=== PATIENT | male | born 1970 ===

== ENCOUNTER 2017-09-29 12:30 | Emergency (ER) | payer OTHER, BC ==
[2017-09-29 12:48] VITALS: TEMP 97.9; O2SAT 98
[2017-09-29 12:49] VITALS: RESP 18
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
[2017-09-29 14:01] VITALS: BP 148/89; PULSE 68
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
--- NOTE | 2017-09-29 15:17 | RAD ---
PROCEDURE: Cervical Spine Radiographs. HISTORY: Pain. COMPARISON: None. FINDINGS: BONES: Alignment maintained. No fracture. Dens IntactVertebral bodies maintained in height. Normal alignment maintained. Atlantoaxial articulation intact. The odontoid process is suboptimally evaluated. . DISC SPACES: Normal. SOFT TISSUES: Normal. No prevertebral soft tissue swelling. OTHER FINDINGS: None. IMPRESSION: No evidence of fracture or dislocation. Technically limited evaluation of odontoid process.
== END 2017-09-29 15:48 | disposition home or self-care (01) ==
LOC: ED 12:30
DX: S16.1XXA Strain of muscle, fascia and tendon at neck level, initial encounter (principal); V89.2XXA Person injured in unspecified motor-vehicle accident, traffic, initial encounter
CPT/HCPCS: 72050; 72110; 96372; 99284; J1885

== ENCOUNTER 2018-08-17 09:41 | Emergency (ER) | payer BC, OTHER ==
[2018-08-17 10:00] VITALS: O2SAT 99
--- NOTE | 2018-08-17 10:11 | ED PDOC ---
Arrival/HPI - General Chief Complaint: Lower Extremity Problem/Injury Historian: Patient - History of Present Illness Narrative History of Present Illness (Text): 08/17/18 10:09 47yo male with no pmhx who present with complaint of left ankle pain s/p trauma this morning. States he landed on uneven ground and twisted his ankle this morning. Ambulating with a limp. Did not take any medication for pain. Denies any other complaint. Past Medical History - Provider Review Nursing Documentation Reviewed: Yes - Infectious Disease Hx of Infectious Diseases: None - Cardiac Hx Cardiac Disorders: No - Psychiatric Hx Substance Use: No - Anesthesia Hx Anesthesia: No Hx Anesthesia Reactions: No Hx Malignant Hyperthermia: No Family/Social History - Physician Review Nursing Documentation Reviewed: Yes Family/Social History: Unknown Family HX Smoking Status: Never Smoked Hx Alcohol Use: No Hx Substance Use: No Allergies/Home Meds Allergies/Adverse Reactions: Allergies No Known Allergies Allergy (Verified 09/29/17 13:08) Review of Systems - Physician Review All systems were reviewed & negative as marked: Yes - Review of Systems Constitutional: Normal Eyes: Normal ENT: Normal Respiratory: Normal Cardiovascular: Normal Gastrointestinal: Normal Genitourinary Male: Normal Musculoskeletal: Arthralgias (LEft ankle) Skin: Normal Neurological: Normal Endocrine: Normal Hemo/Lymphatic: Normal Psychiatric: Normal Physical Exam Vital Signs Reviewed: Yes Vital Signs Temp Pulse Resp BP Pulse Ox 08/17/18 09:50 98 F 65 18 124/69 99 Temperature: Afebrile Blood Pressure: Normal Pulse: Regular Respiratory Rate: Normal Appearance: Positive for: Well-Appearing, Non-Toxic, Comfortable Pain Distress: None Mental Status: Positive for: Alert and Oriented X 3 - Systems Exam Head: Present: Atraumatic, Normocephalic Pupils: Present: PERRL Extroacular Muscles: Present: EOMI Conjunctiva: Present: Normal Mouth: Present: Moist Mucous Membranes Neck: Present: Normal Range of Motion Respiratory/Chest: Present: Clear to Auscultation, Good Air Exchange. No: Respiratory Distress, Accessory Muscle Use Cardiovascular: Present: Regular Rate and Rhythm, Normal S1, S2. No: Murmurs Abdomen: No: Tenderness, Distention, Peritoneal Signs Back: Present: Normal Inspection Upper Extremity: Present: Normal Inspection. No: Cyanosis, Edema Lower Extremity: Present: NORMAL PULSES, Normal ROM, Tenderness (Diffuse left ankle), Swelling (Left lateral malleolus). No: Edema, Deformity Neurological: Present: GCS=15, CN II-XII Intact, Speech Normal Skin: Present: Warm, Dry, Normal Color. No: Rashes Psychiatric: Present: Alert, Oriented x 3, Normal Insight, Normal Concentration Medical Decision Making ED Course and Treatment: 08/17/18 14:01 PT in ED for left ankle pain s/p trauma this morning Ibuprofen 600mg Left ankle xray Left ankle xray IMPRESSION: Soft tissue swelling without acute articular or osseous abnormality. PT advised to RICE ankle. Lewis wrap applied. He declined crutches and cane was given Referred to a Ticket Dispenser Changer - RAD Interpretation Radiology Orders: 08/17/18 10:04 ANKLE LEFT 3 VIEWS ROUTINE [RAD] Stat Disposition/Present on Arrival - Present on Arrival Any Indicators Present on Arrival: No History of DVT/PE: No History of Uncontrolled Diabetes: No Urinary Catheter: No History of Decub. Ulcer: No History Surgical Site Infection Following: None - Disposition Have Diagnosis and Disposition been Completed?: Yes Diagnosis: Ankle sprain Disposition: HOME/ ROUTINE Disposition Time: 11:55 Patient Plan: Discharge Condition: STABLE Discharge Instructions (ExitCare): Ankle Sprain (DC) Additional Instructions: Rest, Ice, Compress and elevate ankle Take medication as directed and follow up with a Ticket Dispenser Changer Return to ED for any new or worsening symptoms Prescriptions: RX: Ibuprofen [Motrin Tab] 600 mg PO Q6 #20 tab Referrals: Papo Raymundo JD, MD [Primary Care Provider] - Follow up with primary Nate Zarco DPM [Staff Provider] - Follow up with primary Forms: [employer] (Kittitian), WORK NOTE
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
[2018-08-17 12:12] VITALS: BP 129/82; PULSE 69; RESP 19; TEMP 98.2
== END 2018-08-17 12:12 | disposition home or self-care (01) ==
LOC: ED 09:41
DX: S93.402A Sprain of unspecified ligament of left ankle, initial encounter (principal); X50.1XXA Overexertion from prolonged static or awkward postures, initial encounter; Y92.9 Unspecified place or not applicable

== ENCOUNTER 2018-11-23 10:41 | Emergency (ER) | payer BC, OTHER ==
--- NOTE | 2018-11-23 11:49 | ED PDOC ---
Arrival/HPI - General Historian: Patient - History of Present Illness Narrative History of Present Illness (Text): 11/23/18 11:40 48 year old male with PMH of chronic lower/cervical back pain, GERD presents with midsternal chest pain for one day. Pain is sharp, intermittent, with no radiation, worsens with inspiration and movement. He denied similar symptoms in the past. He also complaining of neck pain that radiates to left shoulder, it's sharp, shooting, radiates down the arm. Patient has h/o chronic cervical neck pain with radiculopathy symptoms for which he takes NSAID. Patient denied SOB, palpitations, cough, nausea, vomiting, diarrhea, urinary symptoms. He denied h/o premature CAD in his family and personal history of heart disease. Time/Duration: 24 hours Symptom Onset: Gradual Symptom Course: Intermittent Quality: Aching Severity Level: 6 Context: Home <Jaime Triplett - Last Filed: 11/23/18 11:56> <Navin Bird - Last Filed: 11/23/18 14:02> - General Chief Complaint: Chest Pain Time Seen by Provider: 11/23/18 10:52 Past Medical History - Provider Review Nursing Documentation Reviewed: Yes - Travel History Have you recently traveled outside [place] w/in the past 3 mons?: No - Infectious Disease Hx of Infectious Diseases: None - Cardiac Hx Cardiac Disorders: No - Musculoskeletal/Rheumatological Hx Musculoskeletal Disorders: Yes Hx Back Pain: Yes - Gastrointestinal Hx Gastroesophageal Reflux: Yes - Genitourinary/Gynecological Hx Genitourinary Disorders: No - Psychiatric Hx Psychophysiologic Disorder: No Hx Substance Use: No - Anesthesia Hx Anesthesia: No Hx Anesthesia Reactions: No Hx Malignant Hyperthermia: No <Jaime Triplett - Last Filed: 11/23/18 11:56> Family/Social History - Physician Review Nursing Documentation Reviewed: Yes Smoking Status: Never Smoked Hx Alcohol Use: No Hx Substance Use: No <Jaime Triplett - Last Filed: 11/23/18 11:56> Allergies/Home Meds <Jaime Triplett - Last Filed: 11/23/18 11:56> <Navin Bird - Last Filed: 11/23/18 14:02> Allergies/Adverse Reactions: Allergies No Known Allergies Allergy (Verified 09/29/17 13:08) Review of Systems - Physician Review All systems were reviewed & negative as marked: Yes - Review of Systems Constitutional: Normal Eyes: Normal ENT: Normal Respiratory: Normal. absent: SOB, Cough Cardiovascular: Normal Gastrointestinal: Abdominal Pain Musculoskeletal: Back Pain, Neck Pain Skin: Normal Neurological: Normal Endocrine: Normal Hemo/Lymphatic: Normal Psychiatric: Normal <Jaime Triplett - Last Filed: 11/23/18 11:56> Medical Decision Making - RAD Interpretation Radiology Orders: 11/23/18 11:36 CHEST TWO VIEWS (PA/LAT) [RAD] Stat SHOULDER LEFT ONE VIEW (OR) [RAD] Stat <Jaime Triplett - Last Filed: 11/23/18 11:56> ED Course and Treatment: 11/23/18 11:58 A 48 year old male who presents to the emergency department with a complaint of one day duration midsternal chest pain. In agreement with resident note, which includes further HPI details. Patient was seen and evaluated with resident, came up with plan and treatment together. - Lab Interpretations Lab Results: 11/23/18 12:00 11/23/18 12:00 Lab Results 11/23/18 13:30: Urine Color Yellow, Urine Appearance Clear, Urine pH 6.5, Ur Specific [place] 1.010, Urine Protein Negative, Urine Glucose (UA) Negative, Urine Ketones Trace H, Urine Blood Negative, Urine Nitrate Negative, Urine Bilirubin Negative, Urine Urobilinogen 0.2, Ur Leukocyte Esterase Negative 11/23/18 12:00: Sodium 139, Potassium 4.1, Chloride 104, Carbon Dioxide 28, Anion Gap 11, BUN 15, Creatinine 0.8, Est GFR ( Amer) > 60, Est GFR (Non- Af Amer) > 60, Random Glucose 89, Calcium 9.6, Phosphorus 3.8, Magnesium 1.9, Total Bilirubin 0.4, AST 25, ALT 29, Alkaline Phosphatase 84, Total Protein 7.5, Albumin 4.4, Globulin 3.1, Albumin/Globulin Ratio 1.4 11/23/18 12:00: WBC 7.0, RBC 5.00, Hgb 14.8, Hct 43.6, MCV 87.2, MCH 29.6, MCHC 33.9, RDW 12.7, Plt Count 200, MPV 10.7, Neut % (Auto) 68.4 H, Lymph % (Auto) 23.2, Ware % (Auto) 5.4, Eos % (Auto) 2.6, Baso % (Auto) 0.4, Lymph # (Auto) 1.6, Ware # (Auto) 0.4, Eos # (Auto) 0.2, Baso # (Auto) 0.03, Absolute Neuts (auto) 4.78 I have reviewed the lab results: Yes - RAD Interpretation Radiology Orders: 11/23/18 11:36 CHEST TWO VIEWS (PA/LAT) [RAD] Stat SHOULDER LEFT ONE VIEW (OR) [RAD] Stat - Medication Orders Current Medication Orders: 11/23/18 13:51 Lidocaine (Lidoderm) 1 ea TD DAILY MICHAEL Last Admin: 11/23/18 12:51 Dose: 1 ea MAR Transdermal Patch Site Document 11/23/18 12:51 LA (Rec: 11/23/18 12:51 LA [id number]) Transdermal Patch Site Transdermal Patch Site Right Shoulder Discontinued Medications Diazepam (Valium) 5 mg PO ONCE ONE; Protocol Stop: 11/23/18 12:08 Last Admin: 11/23/18 12:50 Dose: 5 mg Ketorolac Tromethamine (Toradol) 60 mg IM STAT STA Stop: 11/23/18 12:08 Last Admin: 11/23/18 12:59 Dose: Not Given Non-Admin Reason: Patient Refused <Navin Bird - Last Filed: 11/23/18 14:02> - Scribe Statement The provider has reviewed the documentation as recorded by the Indiraibe Britni Bryant Provider Scribe Attestation: All medical record entries made by the Scribe were at my direction and personally dictated by me. I have reviewed the chart and agree that the record accurately reflects my personal performance of the history, physical exam, medical decision making, and the department course for this patient. I have also personally directed, reviewed, and agree with the discharge instructions and disposition. <Navin Bird - Last Filed: 11/23/18 14:02> Disposition/Present on Arrival - Present on Arrival History of DVT/PE: No History of Uncontrolled Diabetes: No Urinary Catheter: No History Surgical Site Infection Following: None <Jaime Triplett - Last Filed: 11/23/18 11:56> - Present on Arrival Any Indicators Present on Arrival: No - Disposition Have Diagnosis and Disposition been Completed?: Yes Disposition Time: 13:52 Patient Plan: Discharge <Navin Bird - Last Filed: 11/23/18 14:02> - Disposition Diagnosis: Musculoskeletal chest pain Disposition: HOME/ ROUTINE Condition: GUARDED Discharge Instructions (ExitCare): Chest Pain (ED), Chest Pain That Is Not Caused by the Heart (DC) Print Language: SENEGALESE Additional Instructions: Please follow up with an orthopedic surgeon Please do not operate heavy machinery while taking medications Prescriptions: Cyclobenzaprine [Cyclobenzaprine HCl] 10 mg PO PRN PRN #12 tab PRN Reason: Muscle Spasm Ibuprofen [Motrin] 600 mg PO Q6 #10 tab Lidocaine 5% [Lidoderm] 1 ea TD Q12 #6 patch Referrals: Ronny Odell MD [Staff Provider] - Follow up with primary Pratibha Burris MD [Medical Doctor] - Follow up with primary [facility] [place] [Outside] - Follow up with primary Forms: [employer] (Czech), WORK NOTE
[2018-11-23] MEDS ORDERED: Lidocaine 5% Patch TD SCH (12:15)
[2018-11-23 12:19] LABS: BASO # 0.03 K/mm3 (0.0-2.0); BASO % 0.4 % (0.0-3.0); EOS # 0.2 (0.0-0.7); EOS % 2.6 % (1.5-5.0); HEMOGLOBIN 14.8 g/dL (14.0-18.0); LYMPH # 1.6 (1.2-3.4); LYMPH % 23.2 % (22.0-35.0); MEAN CELL VOLUME 87.2 fl (80.0-105.0); MEAN CORPUSCULAR HEMOGLOBIN 29.6 pg (25.0-35.0); MEAN CORPUSCULAR HGB CONC 33.9 g/dl (31.0-37.0); MEAN PLATELET VOLUME 10.7 fl (7.0-11.0); MONO # 0.4 (0.1-0.6); MONO % 5.4 % (1.0-6.0); RED CELL DISTRIBUTION WIDTH 12.7 % (11.5-14.5)
[2018-11-23 12:33] LABS: ALB/GLOB RATIO 1.4 (1.1-1.8); ALBUMIN 4.4 g/dL (3.0-4.8); ALT/SGPT 29 U/L (7-56); AST/SGOT 25 U/L (17-59); BLOOD UREA NITROGEN 15 mg/dL (7-21); CALCIUM 9.6 mg/dL (8.4-10.5); GFR NON-AFRICAN AMERICAN > 60
--- NOTE | 2018-11-23 12:42 | RAD ---
Date of service: 11/23/2018 HISTORY: chest pain COMPARISON: No prior. TECHNIQUE: Chest PA and lateral FINDINGS: LUNGS: No active pulmonary disease. PLEURA: No significant pleural effusion identified. No pneumothorax apparent. CARDIOVASCULAR: No aortic atherosclerotic calcification present. Normal cardiac size. No pulmonary vascular congestion. OSSEOUS STRUCTURES: No significant abnormalities. VISUALIZED UPPER ABDOMEN: Normal. OTHER FINDINGS: None. IMPRESSION: No active disease.
--- NOTE | 2018-11-23 12:42 | RAD ---
Date of service: 11/23/2018 PROCEDURE: Radiographs of the Left Shoulder HISTORY: shoulder pain COMPARISON: No prior. FINDINGS: BONES: Normal. No fracture. JOINTS: Mild osteoarthritic changes noted. SOFT TISSUES: Normal. OTHER FINDINGS: None. IMPRESSION: Mild osteoarthritic changes.
[2018-11-23 13:41] LABS: PH,URINE 6.5 (4.7-8.0); URINE BILIRUBIN NEGATIVE (NEGATIVE); URINE BLOOD NEGATIVE (NEGATIVE); URINE GLUCOSE (UA) NEGATIVE (NEGATIVE); URINE LEUKOCYTE ESTERASE NEGATIVE Leu/uL (NEGATIVE); URINE PROTEIN NEGATIVE mg/dL (<30 mg/dL); URINE UROBILINOGEN 0.2 E.U./dL (<1 E.U./dL)
[2018-11-23 13:50] LABS: URINE APPEARANCE CLEAR (CLEAR); URINE COLOR YELLOW (YELLOW)
--- NOTE | 2018-11-23 13:57 | CARD ---
APPROVED REPORT Date of service: 11/23/2018 EKG Measurement Heart [id number] <Conclusion> Sinus rhythm with 1st degree AV block Otherwise normal ECG
[2018-11-23 14:52] VITALS: BP 123/74; PULSE 62; RESP 19; TEMP 98.1; O2SAT 100
== END 2018-11-23 14:50 | disposition home or self-care (01) ==
LOC: ED 10:41
DX: R07.89 Other chest pain (principal)